=== PATIENT | male | born 1960 | race Caucasian/White ===

== ENCOUNTER 2019-05-22 10:50 | Emergency (ER) | payer SELFPAY ==
[2019-05-22] MEDS ORDERED: IPRATROPIUM/ALBUTEROL 0.5-2.5 MG/3 ML AMPUL NEB ONE (12:40)
[2019-05-22] MEDS ORDERED: PREDNISONE 20 MG TABLET PO ONE (12:40)
--- NOTE | 2019-05-22 12:41 | ER Document Report ---
ED Medical Screen (RME) - General Chief Complaint: Shortness Of Breath Stated Complaint: TROUBLE BREATHING Time Seen by Provider: 05/22/19 12:36 Primary Care Provider: FABRICE BROCK MD [Primary Care Provider] - Follow up as needed Notes: HPI: History is obtained from the patient and a friend. A 59-year-old male who is for the most part homeless who smokes cigars presenting for 2+ months of coughing and wheezing. No definitive fevers. Occasional shortness of breath states it is worse in the morning when he gets up. I have greeted and performed a rapid initial assessment of this patient. A comprehensive ED assessment and evaluation of the patient, analysis of test results and completion of the medical decision making process will be conducted by additional ED providers PHYSICAL EXAMINATION: GENERAL: Well-appearing, well-nourished and in mild acute distress. HEAD: Atraumatic, normocephalic. EYES: sclera anicteric, conjunctiva are normal. ENT: Moist mucous membranes. NECK: Normal range of motion LUNGS: Normal work of breathing, expiratory wheezing in all lung frank HEART: 2+ radial pulses bilaterally, regular rate and rhythm ABD: limited by positioning for exam in triage. EXTREMITIES: no pitting or edema. No cyanosis. NEUROLOGICAL: No focal neurological deficits. Moves all extremities spontaneously and on command. PSYCH: Normal mood, normal affect. SKIN: Warm, Dry, normal turgor, no rashes or lesions noted. TRAVEL OUTSIDE OF THE [place] IN LAST 30 DAYS: No - Related Data Allergies/Adverse Reactions: No Known Allergies Allergy (Verified 05/22/19 12:33) Past Medical History - Social History Chew tobacco use (# tins/day): No Frequency of alcohol use: None Drug Abuse: None Physical Exam - Vital signs Vitals: Temp Pulse Resp BP Pulse Ox 99.0 F 75 16 136/80 H 96 05/22/19 11:52 05/22/19 11:52 05/22/19 11:52 05/22/19 11:52 05/22/19 11:52 Course - Vital Signs Vital signs: Temp Pulse Resp BP Pulse Ox 99.0 F 75 16 136/80 H 96 05/22/19 11:52 05/22/19 11:52 05/22/19 11:52 05/22/19 11:52 05/22/19 11:52 Doctor's Discharge - Discharge Referrals: FABRICE BROCK MD [Primary Care Provider] - Follow up as needed
--- NOTE | 2019-05-22 13:51 | RADIOLOGY REPORT (SQ) ---
EXAM DESCRIPTION: CHEST 2 VIEWS COMPLETED DATE/TIME: 05/22/2019 12:17 pm REASON FOR STUDY: cough COMPARISON: None. EXAM PARAMETERS: NUMBER OF VIEWS: two views TECHNIQUE: Digital Frontal and Lateral radiographic views of the chest acquired. RADIATION DOSE: NA LIMITATIONS: none FINDINGS: LUNGS AND PLEURA: No opacities, masses or pneumothorax. No pleural effusion. MEDIASTINUM AND HILAR STRUCTURES: No masses or contour abnormalities. HEART AND VASCULAR STRUCTURES: Heart normal size. No evidence for failure. BONES: No acute findings. HARDWARE: None in the chest. OTHER: No other significant finding. IMPRESSION: NO ACUTE RADIOGRAPHIC FINDING IN THE CHEST. TECHNICAL DOCUMENTATION: JOB ID: [id number] [employer]- All Rights Reserved Reading location - IP/workstation name: [email or web address]
[2019-05-22] MEDS ORDERED: ALBUTEROL SULFATE HFA (90 MCG/PUFF) 200 PUFF/8.5 GM MDI IH ONE (15:36)
[2019-05-22] MEDS ORDERED: AZITHROMYCIN 250 MG TABLET PO ONE (15:37)
--- NOTE | 2019-05-22 15:40 | ER Document Report ---
HPI - HPI Time Seen by Provider: 05/22/19 12:36 Pain Level: 2 Context: Please see prior RME note for history and physical. 59-year-old male who smokes with upper respiratory symptoms for several weeks. Wheezing has completely resolved after breathing treatment and steroids he states he feels much better. Recommended quitting smoking. Will place patient on Zithromax for atypical bronchitis with bronchospasm. Will dispense an albuterol inhaler to the patient given his financial means will keep patient on Zithromax and prednisone with referral to primary medical doctor for follow-up - REPRODUCTIVE Reproductive: DENIES: : Past Medical History - Social History Smoking Status: Current Every Day Smoker Chew tobacco use (# tins/day): No Frequency of alcohol use: None Drug Abuse: None Family History: Reviewed & Not Pertinent Patient has suicidal ideation: No Patient has homicidal ideation: No Vertical Provider Document - INFECTION CONTROL TRAVEL OUTSIDE OF THE [place] IN LAST 30 DAYS: No Course - Vital Signs Vital signs: Temp Pulse Resp BP Pulse Ox 97.9 F 71 20 147/78 H 98 05/22/19 15:23 05/22/19 15:23 05/22/19 15:23 05/22/19 15:23 05/22/19 15:23 Discharge - Discharge Clinical Impression: Acute bronchitis with bronchospasm, Tobacco use Condition: Stable Disposition: HOME, SELF-CARE Instructions: Bronchitis ([facility]) Additional Instructions: 1. take the medications as prescribed 2. if you were prescribed an Albuterol inhaler, use it as instructed, 2 puffs every 4 hours as needed for cough/wheezing 3. call your primary care provider as soon as possible to schedule recheck appt. in the office. 4. return to the ED for any worsening condition, shortness of breath or continued fever that does not resolve with Motrin/Tylenol Prescriptions: Prednisone [Deltasone 20 mg Tablet] 2 tab PO DAILY 5 Days tablet Azithromycin [Zithromax 250 mg Tablet] 250 mg PO ASDIR PRN #6 tablet PRN Reason: Referrals: ARTURO ALANIZ MD [ACTIVE STAFF] - Follow up as needed
[2019-05-22 16:14] VITALS: BP 134/83
== END 2019-05-22 16:10 | disposition home or self-care (01) ==
LOC: ER 10:50
DX: J20.9 Acute bronchitis, unspecified (principal); F17.200 Nicotine dependence, unspecified, uncomplicated
CPT/HCPCS: 71046; J7512; J3490; J7620